=== PATIENT | female | born 1985 | race Two or more races ===

== ENCOUNTER 2016-11-28 08:48 | Emergency (ER) | payer MEDICAID ==
[~2016-11-28] VITALS: Ht 170.2 cm; Wt 113.4 kg
[2016-11-28 09:00] VITALS: BP 165/91
== END 2016-11-28 09:28 | disposition home or self-care (01) ==
LOC: ER 08:48
DX: N39.0 Urinary tract infection, site not specified (principal); Z91.041 Radiographic dye allergy status; Z90.49 Acquired absence of other specified parts of digestive tract; F17.210 Nicotine dependence, cigarettes, uncomplicated
CPT/HCPCS: 81002